=== PATIENT | male | born 1975 | race Caucasian/White ===

== ENCOUNTER 2020-03-04 18:58 | Emergency (ER) | payer MEDICAID, SELFPAY ==
[~2020-03-04] VITALS: Ht 167.6 cm; Wt 88.3 kg
[2020-03-04] MEDS ORDERED: HYDROmorphone 1 MG/ML, 1ML INJ ONE ×2 (19:42→20:35)
[2020-03-04] MEDS ORDERED: ONDANSETRON 2MG/ML, 2ML ONE (19:43)
[2020-03-04] MEDS: HYDROmorphone 2 MG/ML, 1ML IVPush PRN ×2 (19:47→20:39)
[2020-03-04 19:51] LABS: MEAN CORPUSCULAR HEMOGLOBIN 30.7 pg (27.5-34.5); MEAN CORPUSCULAR HGB CONC 33.9 g/dL (33.2-36.2); MEAN PLATELET VOLUME 7.8 fL (7.4-10.4); PLATELET COUNT 411 x10^3/uL (130-400); RED BLOOD COUNT 5.41 x10^6/uL (4.38-5.82); RED CELL DISTRIBUTION WIDTH 14.6 % (9.4-14.8)
[2020-03-04] MEDS ORDERED: ONDANSETRON 2MG/ML, 2ML IVPush ONE (20:00)
[2020-03-04] MEDS ORDERED: SODIUM CHLORIDE FLUSH 10ML SYR IVF ONE (20:00)
[2020-03-04] MEDS ORDERED: SODIUM CHLORIDE 0.9% 1,000 ML IV ONE (20:00)
[2020-03-04] MEDS ORDERED: SODIUM CHLORIDE 0.9% 1,000ML IVBOLUS ONE (20:00)
[2020-03-04] MEDS ORDERED: OMNIPAQUE 350 MG/ML, 100ML BOTTLE ONE (20:00)
[2020-03-04 20:03] LABS: ALANINE AMINOTRANSFERASE 36 U/L (12-78); ALBUMIN 3.7 g/dL (3.4-5.0); ANION GAP 7 mmol/L (5-15); CALCIUM 9.3 mg/dL (8.5-10.1); CHLORIDE 111 mmol/L (98-107); CREATININE 0.94 mg/dL (0.7-1.3)
[2020-03-04 20:05] LABS: ALKALINE PHOSPHATASE 111 U/L (45-117); BILIRUBIN,TOTAL 0.2 mg/dL (0.2-1.0); TOTAL PROTEIN 7.5 g/dL (6.4-8.2)
[2020-03-04 20:14] LABS: MD YES
[2020-03-04 20:16] LABS: <PLATELET ESTIMATE> INCREASED; <PLT MORPHOLOGY> NORMAL PLT MORPH; <RBC MORPHOLOGY> NORMAL; BAND#(MANUAL) 0.19 x10^3/uL; BANDS%(MANUAL) 1 % (0-7); EOS#(MANUAL) 0.19 x10^3/uL (0.0-0.4); EOS% (MANUAL) 1 % (1-7); LYMPH#(MANUAL) 1.75 x10^3/uL (1-3.4); LYMPHS% (MANUAL) 9 % (22-44); MONOS#(MANUAL) 0.78 x10^3/uL (0.3-2.7); MONOS% (MANUAL) 4 % (2-9); SEG#(MANUAL) 16.49 x10^3/uL (1.8-6.8); SEGS% (MANUAL) 85 % (42-75)
--- NOTE | 2020-03-04 21:17 | NUR ---
Desat from dilaudid, placed on 2L Nc up to 94%. More comfortable s/p pain meds.
[2020-03-04 21:37] VITALS: BP 103/59
[2020-03-04 21:47] LABS: MICROSCOPIC INDICATED
== END 2020-03-04 23:29 | disposition home or self-care (01) ==
LOC: ED 19:28
DX: N23 Unspecified renal colic (principal); R31.9 Hematuria, unspecified; R42 Dizziness and giddiness; R11.0 Nausea
CPT/HCPCS: 36415; 74177; 80053; 81001; 83605; 83690; 84550; 85025; 96361; 96374; 96375; 96376; 99285; J1170; J2405; J7030; Q9967

== ENCOUNTER 2020-05-29 18:58 | Emergency (ER) | payer MEDICAID ==
[~2020-05-29] VITALS: Ht 167.6 cm; Wt 85.2 kg
[2020-05-29] MEDS ORDERED: SODIUM CHLORIDE FLUSH 10ML SYR IVF ONE ×2 (19:30→20:00)
[2020-05-29] MEDS ORDERED: ASPIRIN 81 MG TABLET CHEW PO ONE (19:30)
[2020-05-29 19:39] LABS: BASOPHILS % (AUTO) 1 % (0-1); EOSINOPHILS % (AUTO) 0 % (1-7); LYMPHOCYTES % (AUTO) 13 % (22-44); MEAN CORPUSCULAR HEMOGLOBIN 31.3 pg (27.5-34.5); MEAN PLATELET VOLUME 7.1 fL (7.4-10.4); MONOCYTES % (AUTO) 10 % (2-9); NEUTROPHILS % (AUTO) 76 % (42-75); PLATELET COUNT 231 x10^3/uL (130-400); RED BLOOD COUNT 5.74 x10^6/uL (4.38-5.82); RED CELL DISTRIBUTION WIDTH 15.5 % (9.4-14.8)
[2020-05-29 19:51] LABS: ALANINE AMINOTRANSFERASE 32 U/L (12-78); ALBUMIN 3.8 g/dL (3.4-5.0); ANION GAP 11 mmol/L (5-15); CHLORIDE 105 mmol/L (98-107); CREATININE 0.87 mg/dL (0.7-1.3)
[2020-05-29] MEDS ORDERED: MORPHINE SULFATE 4 MG/ML, 1ML ONE (19:55)
[2020-05-29] MEDS ORDERED: methylPREDNISolone SOD SUCC 125 MG/2 ML ONE (19:55)
[2020-05-29 19:56] LABS: ALKALINE PHOSPHATASE 81 U/L (45-117); BILIRUBIN,TOTAL 0.6 mg/dL (0.2-1.0); TOTAL PROTEIN 7.8 g/dL (6.4-8.2); TROPONIN I < 0.015 ng/mL (0.000-0.045)
[2020-05-29] MEDS ORDERED: ASPIRIN 81 MG TABLET CHEW ONE (19:56)
[2020-05-29] MEDS ORDERED: methylPREDNISolone SOD SUCC 125 MG/2 ML IVPush ONE (20:00)
[2020-05-29] MEDS ORDERED: MORPHINE SULFATE 4 MG/ML, 1ML IVPush PRN (20:00)
[2020-05-29] MEDS ORDERED: SODIUM CHLORIDE 0.9% 1,000ML IVBOLUS ONE (20:00)
--- NOTE | 2020-05-29 20:41 | NUR ---
RETURNS FROM [facility]
[2020-05-29] MEDS ORDERED: OMNIPAQUE 350 MG/ML, 100ML BOTTLE ONE (21:00)
[2020-05-29 21:45] VITALS: BP 138/78
== END 2020-05-29 21:52 | disposition home or self-care (01) ==
LOC: ED 19:51
DX: R07.1 Chest pain on breathing (principal); R06.00 Dyspnea, unspecified; R00.0 Tachycardia, unspecified; R20.2 Paresthesia of skin; F17.200 Nicotine dependence, unspecified, uncomplicated; K21.9 Gastro-esophageal reflux disease without esophagitis
CPT/HCPCS: 36415; 71045; 71275; 80053; 83880; 84484; 85025; 85379; 93005; 96361; 96374; 96375; 99285; J2270; J2930; J7030; Q9967

== ENCOUNTER 2020-08-19 07:36 | Emergency (ER) | payer MEDICAID ==
[~2020-08-19] VITALS: Ht 167.6 cm; Wt 80.8 kg
--- NOTE | 2020-08-19 07:50 | NUR ---
INITAL CONTACT: GENERALIZED PAIN, LEFT KNEE AND RIGHT SHOULDER SWELLING AND PAIN X1 DAY. "MY WHOLE BODY IS HURTING". PT TO ROOM WITH STEADY GAIT. POSTIONED TO COMFORT IN BED. ATTACHED TO MONITORS. VSS. SELAM VALENTIN TO BEDSIDE FOR EVALUATION.
[2020-08-19] MEDS ORDERED: KETOROLAC 30 MG/1 ML IM ONE (08:00)
[2020-08-19] MEDS ORDERED: ACETAMINOPHEN 500 MG TABLET PO ONE (08:00)
[2020-08-19] MEDS ORDERED: ACETAMINOPHEN 500 MG TABLET ONE (08:20)
[2020-08-19] MEDS ORDERED: KETOROLAC 30 MG/1 ML ONE (08:20)
[2020-08-19 08:27] LABS: BASOPHILS % (AUTO) 1 % (0-1); EOSINOPHILS % (AUTO) 2 % (1-7); LYMPHOCYTES % (AUTO) 24 % (22-44); MEAN CORPUSCULAR HGB CONC 34.1 g/dL (33.2-36.2); MEAN PLATELET VOLUME 7.4 fL (7.4-10.4); MONOCYTES % (AUTO) 11 % (2-9); NEUTROPHILS % (AUTO) 62 % (42-75); PLATELET COUNT 310 x10^3/uL (130-400); RED BLOOD COUNT 5.43 x10^6/uL (4.38-5.82); RED CELL DISTRIBUTION WIDTH 14.5 % (9.4-14.8)
--- NOTE | 2020-08-19 08:29 | NUR ---
PT MEDICATED PER EMAR. VSS.ROSAN.
[2020-08-19 08:34] LABS: ALANINE AMINOTRANSFERASE 25 U/L (12-78); ALBUMIN 3.4 g/dL (3.4-5.0); ANION GAP 7 mmol/L (5-15); CALCIUM 8.6 mg/dL (8.5-10.1); CHLORIDE 110 mmol/L (98-107); CREATININE 0.56 mg/dL (0.7-1.3)
[2020-08-19 08:36] LABS: ALKALINE PHOSPHATASE 104 U/L (45-117); BILIRUBIN,TOTAL 0.3 mg/dL (0.2-1.0); TOTAL PROTEIN 7.5 g/dL (6.4-8.2)
[2020-08-19 10:15] VITALS: BP 113/75
--- NOTE | 2020-08-19 10:16 | NUR ---
Patient given discharge instructions and they have confirmed that they understand the instructions. Patient ambulatory with limpped gait, pt reports has baseline. All questions answered appropriately, denies additional needs at this time. No personal belongings left in room after discharge.
== END 2020-08-19 10:17 | disposition home or self-care (01) ==
LOC: ED 07:51
DX: M79.10 Myalgia, unspecified site (principal); R00.0 Tachycardia, unspecified; K21.9 Gastro-esophageal reflux disease without esophagitis
CPT/HCPCS: 36415; 73502; 73564; 80053; 85025; 96372; 99284; J1885